=== PATIENT | male | born 1980 | race Caucasian/White ===

== ENCOUNTER 2018-03-10 14:32 | Emergency (ER) | payer SELFPAY ==
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
[2018-03-10] MEDS ORDERED: FAMOTIDINE 20 MG/NACL 50 ML IV ONE (15:17)
[2018-03-10 15:25] LABS: PLATELET COUNT 213 10^3/uL (150-400)
[2018-03-10 15:35] LABS: INR 0.86 (0.83-1.16); PROTIME(PATIENT) 11.9 SEC (12.0-15.0)
[2018-03-10] MEDS ORDERED: IOPAMIDOL (ISOVUE-300) 100 ML BTL ONE (15:57)
[2018-03-10 16:48] VITALS: BP 110/63
== END 2018-03-10 17:23 | disposition home or self-care (01) ==
DX: K92.2 Gastrointestinal hemorrhage, unspecified (principal); F17.200 Nicotine dependence, unspecified, uncomplicated
CPT/HCPCS: 96374; Q9967